=== PATIENT | female | born 1965 | race Caucasian/White ===

== ENCOUNTER 2022-11-15 05:50 | Day surgery (SDC) | payer MEDICAID ==
[~2022-11-15] VITALS: Ht 157.5 cm; Wt 78.9 kg
[2022-11-15 06:59] VITALS: O2SAT 99
[2022-11-15 07:06] LABS: HCG,QUAL RESULT NEGATIVE (NEGATIVE)
[2022-11-15] MEDS ORDERED: EPINEPHrine HCL 1 MG/ML VIAL ONE (07:38)
[2022-11-15] MEDS ORDERED: ROCURONIUM BROMIDE 10 MG/ML (ZEMURON) ONE (07:38)
[2022-11-15] MEDS ORDERED: WATER FOR IRRIGATION,STERILE 1,000 ML IRRIG.SOLN IR ONE (07:38)
[2022-11-15] MEDS ORDERED: NS IRRIG SOLN 1000 ML IR ONE (07:38)
[2022-11-15] MEDS ORDERED: HYDROmorphone 2 MG/ML VIAL ONE (07:38)
[2022-11-15] MEDS ORDERED: NS 1000 ML IV.SOLN IV ONE (07:38)
[2022-11-15] MEDS ORDERED: MUPIROCIN 2% TOPICAL OINTMENT 22 GM ONE (07:38)
[2022-11-15] MEDS ORDERED: LIDOCAINE/EPI 1% 1:100000 20 ML VIAL ONE (07:38)
[2022-11-15] MEDS ORDERED: LIDOCAINE 2%, 20 ML MDV ONE (07:38)
[2022-11-15] MEDS ORDERED: SUGAMMADEX SODIUM 200 MG/2 ML VIAL IV ONE (07:38)
[2022-11-15] MEDS ORDERED: DESFLURANE 15 MIN GAS INH ONE (07:38)
[2022-11-15] MEDS ORDERED: DEXAMETHASONE SOD PHOSPHATE 4 MG/ML VIAL ONE (07:38)
[2022-11-15] MEDS ORDERED: ONDANSETRON HCL 4 MG/2 ML VIAL ONE (07:38)
[2022-11-15] MEDS ORDERED: ACETAMINOPHEN I.V. 1000 MG 100 ML IV ONE (08:00)
[2022-11-15] MEDS ORDERED: METOCLOPRAMIDE HCL 10 MG/2 ML VIAL IVP PRN (09:00)
[2022-11-15] MEDS ORDERED: LR 1,000 ML IV SCH (09:00)
[2022-11-15] MEDS ORDERED: LABETALOL 100 MG/ 20ML VIAL IVP PRN (09:00)
[2022-11-15] MEDS ORDERED: HYDROmorphone 1 MG/ML INJ. CARTRIDGE IVP PRN ×2 (09:00)
[2022-11-15] MEDS ORDERED: MEPERIDINE HCL/PF 25 MG/ML DISP.SYRIN IVP PRN (09:00)
[2022-11-15] MEDS ORDERED: hydrALAZINE HCL 20 MG/ML VIAL IVP PRN (09:00)
[2022-11-15 13:00] VITALS: BP_SYST 142; PULSE 68; RESP 20
== END 2022-11-15 12:50 | disposition home or self-care (01) ==
LOC: SDS 05:50
PROVIDERS: ATTEND Otolaryngology
DX: J32.9 Chronic sinusitis, unspecified (principal); J34.2 Deviated nasal septum; D38.5 Neoplasm of uncertain behavior of other respiratory organs; J45.909 Unspecified asthma, uncomplicated; K21.9 Gastro-esophageal reflux disease without esophagitis; E78.5 Hyperlipidemia, unspecified; I10 Essential (primary) hypertension; E03.9 Hypothyroidism, unspecified; D35.2 Benign neoplasm of pituitary gland; H92.03 Otalgia, bilateral; M26.609 Unspecified temporomandibular joint disorder, unspecified side; Z98.890 Other specified postprocedural states; Z79.899 Other long term (current) drug therapy
CPT/HCPCS: 31298; 84703; 88304; 88305; 88311; 31255; 31256; 30140; 30520; J3490; J1100; J0171; J2001; J2405; J1170; J7030; C1726; J0131